=== PATIENT | male | born 1950 | race Caucasian/White ===

== ENCOUNTER 2018-01-23 16:19 | Emergency (ER) | payer MEDICARE, SELFPAY ==
[2018-01-23 16:20] VITALS: BP 151/77; PULSE 81; RESP 22; TEMP 36.6; O2SAT 88; BMI 27.9
[2018-01-23 16:30] VITALS: BP 177/100; PULSE 95; RESP 14; O2SAT 94
[2018-01-23 16:33] VITALS: O2SAT 96
[2018-01-23 17:08] LABS: Absolute Lymphocyte Count 0.43 X10^3/ul (0.83-4.51); Absolute Neutrophil Count 3.6 X10^3/uL (2.0-7.7); Basophil# 0.01 X10^3/uL; Basophil% 0.2 % (0-1); Eosinophil# 0.09 X10^3/uL; Eosinophils% 2.1 % (0-5); Hematocrit 33.2 % (40-54); Hemoglobin 10.3 g/dl (13.0-16.5); Lymphocyte # 0.43 X10^3/ul (4.0); Lymphocyte % 9.9 % (19-41); Mean Corpuscular Hgb 28.1 pg (27.0-32.0); Mean Corpuscular Volume 90.5 fL (80-94); Mean Platelet Vol. 10.4 fl (6.2-12.0); Monocyte# 0.22 X10^3/uL; Monocyte% 5.1 % (0-10); Neutrophil # 3.59 X10^3/uL (2.7-7.7); Neutrophil % 82.7 % (47-70); Platelet Count 119 K/mm3 (150-450); RBC Distribution Width CV 15.7 % (11.6-14.6); RBC Distribution Width SD 52.2 fl (35.1-43.9); Red Blood Count 3.67 M/mm3 (4.6-6.2); White Blood Count 4.3 K/mm3 (4.4-11.0)
[2018-01-23 17:22] LABS: Anion Gap 7 (5-15); BUN 19 mg/dL (7-18); BUN/Creat Ratio 9.6 RATIO (10-20); Calcium,Total 8.9 mg/dL (8.5-10.1); Chloride 99 mmol/L (98-107); Creatinine, Serum 1.98 mg/dL (0.70-1.30); EST Glomerular Filtration Rate 36 mL/min (>60); Est Glom Filt Rate - Afr Amer 43 mL/min (>60); Estimated Creatinine Clearance 38.65 ml/min; Glucose 496 mg/dL (74-106); Potassium 3.6 mmol/L (3.5-5.1); Sodium Level 138 mmol/L (136-145)
--- NOTE | 2018-01-23 17:22 | ED.RN ---
lab resulted glucose 496, physician notified
[2018-01-23 17:46] LABS: Differential Indicated SCAN CRITERIA MET; POSITIVE COUNT NO; POSITIVE DIFFERENTIAL YES; POSITIVE MORPHOLOGY NO
[2018-01-23 17:56] LABS: Differential Comment SCANNED
[2018-01-23 18:00] VITALS: BP 165/76; PULSE 80; RESP 23; O2SAT 96
--- NOTE | 2018-01-23 18:51 | ED.DCSUM_ITS ---
- ER Visit Summary Date of Service: 01/23/18 Chief Complaint: I do not feel good. History of Present Illness: The patient is a 67 M who goes to the [facility] and is a poor informant. Patient reports that he saw a nurse at [facility] today for a routine visit. On the way home he began not feeling well. He is unable to further describe this. He complains of generalized weakness. He also has chronic shortness of breath that is unchanged. Sister is at the bedside and reports that on January 09 he had a chest x-ray they were told that he had bilateral pleural effusions and he required 1 unit of packed red blood cells for anemia. He refused admission to the hospital at that time. Review of systems: General: No fever, chills, cold sweats. Cardiovascular: No chest pain, palpitations. Respiratory: No cough, shortness of breath, dyspnea on exertion. Gastrointestinal: No abdominal pain, nausea, vomiting, diarrhea, melena, or hematochezia. Genitourinary: No dysuria, frequency, hematuria. Skin: No rash. Neuro: No headache, numbness, weakness. Physical Examination: Vitals: Stable. Afebrile. General: Well-nourished and well-developed. Head: Normocephalic atraumatic. Neck: Supple, no lymphadenopathy. No JVD. Nontender. Cardiovascular: Regular rate and rhythm. 2 out of 6 systolic murmur. Respiratory: No respiratory distress. Clear to auscultation bilaterally. Abdominal: Soft, nontender, nondistended, normal bowel sounds. No guarding, rebound, or peritoneal signs. Back: Nontender. Extremities: Nontender, no edema. Skin: Normal color, no rash. Neurologic: Alert and oriented ?3. Cranial nerves II through XII are intact. Normal strength and sensation. Psych: Normal affect. Test Results: EKG is sinus at 77 with T-wave inversions in leads I/aVL, V5 and V6. There is no old EKG for comparison. I suspect that these repolarization changes from [facility]. Chest x-ray shows small right pleural effusion. CBC is more for a white count of 4.3, H&H of 10.3 and 33.2, platelets 119, segmented neutrophils 83, lymphs lites of 10. Chem-7 is more for BUN of 19, creatinine 1.98, glucose of 496. I do not have an old creatinine for comparison. Troponin 0 0.017. Emergency Department Course and Treatment: I had a prolonged discussion with patient about his elevated glucose. He reports that his NovoLog was stopped 3- 4 weeks ago. He is unsure of what his dose was. He reports that he was placed on a pill, the name of which she does not know and he is only taken his morning dose today. He does report that he takes 65-70 units of Lantus at 9:30 at night. The patient has refused a dose of insulin here. Treatment Plan: Patient is insistent on leaving without treatment for his blood sugar. I am unable to contact anyone at the [facility] to find out what medications he is actually on for his blood sugar. He reports that his sugar typically runs in the 200s and he ate prior to coming here. He will take his oral hypoglycemic and his dose of Lantus tonight. He is instructed to follow- up the [facility] as soon as possible. Return to the emergency department for any worsening symptoms. Disposition: To home in improved and stable condition. Impression: 1. Hyperglycemia with [id number] diabetes mellitus. 2. Small right pleural effusion. 3. COPD. 4. Anemia. 5. Renal insufficiency. This note was generated with [employer] dictation software. It may contain incorrect words, spelling, and punctuation that were not noted in review of the chart prior to signing ED Disposition - Plan for ED Patient: Disposition: Home or Assisted Living Chief Complaint: Shortness of Breath Instructions: ED Hyperglycemia Diabetic Referrals: [facility] [Primary Care Provider] - As soon as possible
[2018-01-23 19:03] VITALS: BP 164/76; PULSE 81; PULSE 91; RESP 18; O2SAT 99
--- NOTE | 2018-01-24 11:41 | CM.ED ---
ED CALLBACK: Follow-up call placed to patient. Patient states he's doing alright today. [facility] Patient states that he does have all of the diabetic supplies he needs and thanks for call. Patient denies any needs or questions.
== END 2018-01-23 19:04 | disposition home or self-care (01) ==
LOC: ED 17:07
PROVIDERS: Emergency Provider Emergency Medicine
DX: E11.65 Type 2 diabetes mellitus with hyperglycemia (principal); J44.9 Chronic obstructive pulmonary disease, unspecified; D64.9 Anemia, unspecified; N28.9 Disorder of kidney and ureter, unspecified; I11.0 Hypertensive heart disease with heart failure; I50.9 Heart failure, unspecified; I25.10 Atherosclerotic heart disease of native coronary artery without angina pectoris; Z79.4 Long term (current) use of insulin; Z87.891 Personal history of nicotine dependence; Z95.1 Presence of aortocoronary bypass graft
CPT/HCPCS: 71045; 80048; 84484; 85025; 86850; 86900; 93005; 99284; A4216